=== PATIENT | female | born 1980 | race American Indian/Alaskan Native ===

== ENCOUNTER 2016-12-25 10:13 | Emergency (ER) | payer BC ==
[2016-12-25 12:05] VITALS: BP 128/87
--- NOTE | 2016-12-25 13:36 | XRay Report ---
LEFT KNEE RADIOGRAPHS INDICATION: Pain and swelling. COMPARISON: None similar at this institution. FINDINGS: AP, lateral and oblique left knee radiographs demonstrate mild tibial spine and medial femoral condyle degenerative spurring. Intact articulation. Minimal suprapatellar fluid not excluded. CONCLUSION: No acute left knee radiographic abnormality with mild degenerative changes, as described. Thank you for the opportunity to participate in this patient's care.
--- NOTE | 2016-12-25 14:49 | Emergency Department Report ---
ED Lower Extremity HPI - General Chief Complaint: Extremity Injury, Lower Stated Complaint: LFT KNEE PAIN Time Seen by Provider: 12/25/16 14:39 Source: patient Mode of arrival: Ambulatory Limitations: No Limitations - History of Present Illness MD Complaint: knee injury -: Gradual Injury: Knee: Right Type of Injury: unknown Severity: moderate Severity scale (0 -10): 4 Worsens With: weight bearing, movement Associated Symptoms: swelling - Related Data Previous Rx's Medication Instructions Recorded Last Taken Type Ibuprofen [Motrin] 800 mg PO Q8HR PRN #20 tablet 12/25/16 Unknown Rx Allergies Allergy/AdvReac Type Severity Reaction Status Date / Time No Known Allergies Allergy Unverified 12/25/16 12:06 ED Review of Systems ROS: Stated complaint: LFT KNEE PAIN Other details as noted in HPI Constitutional: no symptoms reported Eyes: as per HPI ENT: as per HPI Cardiovascular: denies: chest pain, palpitations, dyspnea on exertion, orthopnea , edema, syncope, paroxysmal nocturnal dyspnea Musculoskeletal: arthralgia Skin: denies: rash, lesions ED Past Medical Hx - Past Medical History Additional medical history: OBESITY - Surgical History Past Surgical History?: No - Social History Smoking Status: Never Smoker Substance Use Type: None - Medications Home Medications: Home Medications Medication Instructions Recorded Confirmed Last Taken Type Ibuprofen [Motrin] 800 mg PO Q8HR PRN #20 tablet 12/25/16 Unknown Rx ED Physical Exam - General Limitations: No Limitations General appearance: alert, in no apparent distress - Head Head exam: Present: atraumatic, normocephalic - Eye Eye exam: Present: normal appearance, PERRL, EOMI - ENT ENT exam: Present: normal exam, mucous membranes moist - Neck Neck exam: Present: normal inspection, full ROM. Absent: tenderness - Respiratory Respiratory exam: Present: normal lung sounds bilaterally. Absent: respiratory distress - Cardiovascular Cardiovascular Exam: Present: regular rate - Expanded Lower Extremity Exam Right Knee exam: Present: tenderness. Absent: swelling, ecchymosis, deformity, crepidus, pain/laxity with valgus, pain/laxity with varus, full knee extension Neuro vascular tendon exam: Present: no vascular compromise. Absent: pulse deficit, abnormal cap refill, motor deficit, sensory deficit Gait: Positive: observed and normal - Back Exam Back exam: Present: normal inspection, full ROM. Absent: CVA tenderness (R), CVA tenderness (L) ED Course Vital Signs 12/25/16 11:52 Temperature 98.1 F Pulse Rate 82 Respiratory 20 Rate Blood Pressure 128/87 O2 Sat by Pulse 100 Oximetry Critical care attestation.: If time is entered above; I have spent that time in minutes in the direct care of this critically ill patient, excluding procedure time. ED Disposition Clinical Impression: Osteoarthritis Disposition: DISCHARGED TO HOME OR SELFCARE Is pt being admited?: No Condition: Stable Instructions: Osteoarthritis (ED) Prescriptions: Ibuprofen [Motrin] 800 mg PO Q8HR PRN #20 tablet PRN Reason: Pain Referrals: PRIMARY CAREMD [Primary Care Provider] - 3-5 Days YOON PERSON MD [Staff Physician] - 3-5 Days Forms: Work/School Release Form(ED)
== END 2016-12-25 15:20 | disposition home or self-care (01) ==
LOC: ED 10:13
DX: M17.11 Unilateral primary osteoarthritis, right knee (principal)
CPT/HCPCS: 99283